=== PATIENT | male | born 1995 | race Caucasian/White ===

== ENCOUNTER 2017-08-14 11:28 | Outpatient (CLI) | payer OTHER ==
[2017-08-14 11:41] LABS: BASOPHILS # (AUTO) 0.1 10^3/uL (0.0-0.1); BASOPHILS % (AUTO) 1.2 %; EOSINOPHILS # (AUTO) 0.1 10^3/uL (0.0-0.7); EOSINOPHILS % (AUTO) 1.6 %; HGB - HEMOGLOBIN 17.1 g/dL (14.0-18.0); LYMPHOCYTES # (AUTO) 1.8 10^3/uL (1.5-3.5); LYMPHOCYTES % (AUTO) 33.9 %; MEAN CORPUSCULAR HEMOGLOBIN 29.1 pg (27.0-31.0); MEAN CORPUSCULAR VOLUME 83.1 fL (80.0-94.0); MEAN PLATELET VOLUME 7.7 fL (7.4-11.4); MONOCYTES # (AUTO) 0.5 10^3/uL (0.0-1.0); MONOCYTES % (AUTO) 8.9 %; NEUTROPHILS % (AUTO) 54.4 %; PLT - PLATELET COUNT 272 10^3/uL (130-450); RED CELL DISTRIBUTION WIDTH 13.4 % (12.0-15.0); WHITE BLOOD COUNT 5.5 x10^3/uL (4.8-10.8)
[2017-08-14 12:21] LABS: ALBUMIN/GLOBULIN RATIO 1.5 (1.0-2.2); CREATININE 1.1 mg/dL (0.6-1.2); TOTAL PROTEIN 8.3 g/dL (6.7-8.2)
== END 2017-08-14 11:29 | disposition home or self-care (01) ==
LOC: LAB 11:28
PROVIDERS: ATTEND Family Medicine
DX: Z00.00 Encounter for general adult medical examination without abnormal findings (principal); Z82.49 Family history of ischemic heart disease and other diseases of the circulatory system
CPT/HCPCS: 36415; 80053; 85025

== ENCOUNTER 2020-12-08 20:39 | Emergency (ER) | payer BC, OTHER ==
--- OUTSIDE RECORDS SUMMARY | 2020-12-08 20:43 | EXTERNAL MEDICAL SUMMARY RPT | Continuity of Care Document ---
:1995 Demographics Phone Unavailable Preferred Language Tanzanian Marital Status Unknown Adventist Affiliation Unknown Race Unknown Ethnic Group Unknown Author Organization [facility] [address] [place] [address] Phone Care Team Providers Name Role Phone Mary Kate Unavailable Unavailable Medications date description facility 20201112 24 HR Methylphenidate Hydrochloride 54 MG [facility] Release Tablet 20201016 24 HR Methylphenidate Hydrochloride 54 MG [facility] Release Tablet Problems date description facility [id number] Attention-deficit hyperactivity disorde r, unspecified [facility] type [id number] Attention-deficit hyperactivity disorde r, predominantly [facility] inat Procedures date description facility [id number] General Physician [facility] [id number] Finding [facility] [id number] Diagnosis [facility]
[2020-12-08] MEDS ORDERED: HYDROmorphone 1 MG/ML CARPUJECT IM STA (20:56)
--- NOTE | 2020-12-08 21:00 | ED Physician Documentation ---
History of Present Illness - Stated complaint Stated Complaint: RIGHT ANKLE INJURY - Chief complaint Chief Complaint: Ext Problem - Additonal information Additional information: 25-year-old male presents emergency department for acute right ankle pain and swelling. He rolled his ankle when sliding into a base while playing baseball this afternoon. He reports a longstanding history of recurrent ankle sprains and inversion injuries though no history of fractures. Significant swelling on the lateral malleolus and has been unable to bear weight though no obvious deformity. Review of Systems Constitutional: reports: Reviewed and negative Eyes: reports: Reviewed and negative Nose: reports: Reviewed and negative Throat: reports: Reviewed and negative Cardiac: reports: Reviewed and negative Respiratory: reports: Reviewed and negative GI: reports: Reviewed and negative : reports: Reviewed and negative Skin: reports: Reviewed and negative Musculoskeletal: reports: Joint pain (Right ankle) PD PAST MEDICAL HISTORY - Past Medical History Past Medical History: Yes Psych: ADD/ADHD - Past Surgical History Past Surgical History: No - Present Medications Home Medications: Ambulatory Orders Medication Instructions Recorded Confirmed Methylphenidate HCl 54 mg PO DAILY 12/08/20 12/08/20 [Methylphenidate ER] - Allergies Allergies/Adverse Reactions: Allergies Allergy/AdvReac Type Severity Reaction Status Date / Time cillins Allergy Unknown Unknown Uncoded 12/08/20 20:48 - Social History Does the pt smoke?: No Smoking Status: Never smoker Does the pt drink ETOH?: No Does the pt have substance abuse?: No - Immunizations Immunizations are current?: Yes - POLST Patient has POLST: No PD ED PE EXPANDED - General General: Alert, No acute distress - Extremities Extremities: Right ankle (Significant swelling and mild ecchymosis right lateral malleolus. Full active and passive range of motion in all planes including dorsi and plantar flexion, inversion/eversion. However patient is unable to bear weight when standing. No tenderness at the base of the foot. 2+ DP pulse. Brisk cap ) Results - Vitals Vitals: Vital Signs - 24 hr 12/08/20 12/08/20 20:47 20:54 Temperature 37.1 C 37.1 C Heart Rate 104 H 101 H Respiratory 16 16 Rate Blood Pressure 149/93 H 149/93 H O2 Saturation 97 97 Oxygen O2 Source Room air - Rads (name of study) right ankle Radiology: Final report received (Prominent lateral soft tissue swelling. No definite fracture however follow-up radiographs in 10 days could be performed if patient symptoms do not improve.) PD MEDICAL DECISION MAKING - ED course Complexity details: reviewed results, re-evaluated patient, d/w patient ED course: 25-year-old male presents emergency department for evaluation of acute right ankle pain and swelling following an inversion injury while playing baseball. He reports that shortly after the incident he was able to bear weight but after walking for short period of time the swelling caused increased pain therefore he presents to the emergency department. On exam significant lateral malleoli are swelling without obvious deformity. He does have full active and passive range of motion though again difficulty bearing full weight. X-ray does not reveal any obvious fracture. At this time I suspect that he likely has a fairly severe sprain. Placed in and air splint and given crutches. Recommend routine care. If pain inability to bear weight not markedly better at 7 to 10 days he should return for repeat imaging to rule out occult fracture. Emergent return precautions otherwise discussed. Departure - Departure Disposition: 01 Home, Self Care Clinical Impression: Moderate right ankle sprain Qualifiers: Encounter type: initial encounter Qualified Code(s): S93.401A - Sprain of u nspecified ligament of right ankle, initial encounter Condition: Stable Record reviewed to determine appropriate education?: Yes Instructions: ED Sprain Ankle Follow-Up: Josias Hartmann MD [Primary Care Provider] - Comments: Tray you were seen for swelling in the right ankle after an inversion injury while playing baseball today. You do have a large amount of swelling on the lateral malleolus but reassuringly the x-rays do not show any obvious fracture. I suspect right now you have a moderate to severe sprain. I would like you to wear the air splint when out of bed for the next 7 to 10 days. I do recommend that you take Tylenol or ibuprofen [id number] for discomfort and I also recommend that you continue to ice the ankle for 10 minutes 2-3 times a day. Over the next week I would like you to attempt to bear more and more weight on this foot and ankle. If your pain inability to bear weight is not markedly improved by 7 to 10 days you should return to the emergency department, any urgent care or your primary care office for repeat x-rays. Your job should make a reasonable accommodation for your inability to walk and gave you duties that are mostly sitting.
--- OUTSIDE RECORDS SUMMARY | 2020-12-08 21:27 | EXTERNAL MEDICAL SUMMARY RPT | Continuity of Care Document ---
:1995 Demographics Phone Unavailable Preferred Language Ivorian Marital Status Unknown Latter-Day Affiliation Unknown Race Unknown Ethnic Group Unknown Author Organization [facility] [address] [place] [address] Phone Care Team Providers Name Role Phone Josias Hartmann Unavailable Unavailable Medications date description facility 20201112 24 HR Methylphenidate Hydrochloride 54 MG [facility] Release Tablet 20201016 24 HR Methylphenidate Hydrochloride 54 MG [facility] Release Tablet Problems date description facility [id number] Attention-deficit hyperactivity disorde r, unspecified [facility] type [id number] Attention-deficit hyperactivity disorde r, predominantly [facility] inat Procedures date description facility [id number] General Physician [facility] [id number] Finding [facility] [id number] Diagnosis [facility]
--- NOTE | 2020-12-08 21:48 | XRAY Report ---
PROCEDURE: Ankle 3 View RT INDICATIONS: swelling/pain/tenderness R ANKLE TECHNIQUE: 3 views of the ankle were acquired. COMPARISON: None FINDINGS: No acute fracture. Lateral soft tissue swelling overlying the lateral malleolus. Alignment appears an atomic IMPRESSION: Prominent lateral soft tissue swelling. No definite fracture however follow-up radiograp hs in 10 days could be performed if the patient's symptoms do not improve to exclude occult fracture/ assess for healing sclerosis. Reviewed by: Samuel Rehman MD on 12/08/2020 9:47 PM PDT Approved by: Samuel Rehman MD on 12/08/2020 9:47 PM PDT Station ID: [id number]
[2020-12-08 21:58] VITALS: BP 104/78
== END 2020-12-08 22:09 | disposition home or self-care (01) ==
LOC: ED 20:39
DX: S93.401A Sprain of unspecified ligament of right ankle, initial encounter (principal); X50.1XXA Overexertion from prolonged static or awkward postures, initial encounter; Y93.64 Activity, baseball
CPT/HCPCS: 73610; 96372; 99283; J1170